=== PATIENT | male | born 1985 | race Caucasian/White ===

== ENCOUNTER 2022-05-06 17:29 | Inpatient (IN) | payer SELFPAY ==
[2022-05-06] MEDS ORDERED: Sodium Chloride 0.9% 10 ML Syringe FLUSH PRN (17:53)
[2022-05-06] MEDS ORDERED: Sodium Chloride 0.9% 2.5 ML Syringe FLUSH PRN (17:53)
[2022-05-06] MEDS ORDERED: Sodium Chloride 0.9% 1,000 ML IV ONE ×3 (17:53→20:24)
[2022-05-06 19:14] LABS: CARBON DIOXIDE,CO2 8.8 mmol/L (21.0-32.0); POTASSIUM,K 5.5 mmol/L (3.5-5.1)
[2022-05-06 19:39] LABS: CORONAVIRUS COVID-19 NAA NEGATIVE (NEGATIVE); INFLUENZA A NAA NEGATIVE (NEGATIVE); INFLUENZA B NAA NEGATIVE (NEGATIVE)
[2022-05-06] MEDS: Insulin Regular in 0.9 % NACL 100 ML IV SCH (19:49)
[2022-05-06] MEDS ORDERED: Sodium Chloride 0.9% 1,000 ML IV SCH (21:45)
[2022-05-06 23:21] LABS: BLOOD UREA NITROGEN,BUN 14 mg/dL (7.0-18.0); CARBON DIOXIDE,CO2 10.1 mmol/L (21.0-32.0); CHLORIDE,CL 102 mmol/L (98-107); GLUCOSE RANDOM 249 mg/dL (74-106); POTASSIUM,K 4.7 mmol/L (3.5-5.1); SODIUM,NA 137 mmol/L (136-148)
[2022-05-06 23:24] LABS: ESTIMATED GFR 66 mL/min (>60)
[2022-05-07] MEDS: Enoxaparin 40 MG/0.4 ML Syringe SUBCUT SCH ×2 (01:35→23:07)
[2022-05-07] MEDS: Dextrose 5%-0.9% NaCl 1,000 ML IV SCH ×3 (04:20→16:43)
[2022-05-07 06:01] LABS: BLOOD UREA NITROGEN,BUN 12 mg/dL (7.0-18.0); CARBON DIOXIDE,CO2 15.7 mmol/L (21.0-32.0); CHLORIDE,CL 106 mmol/L (98-107); GLUCOSE RANDOM 199 mg/dL (74-106); POTASSIUM,K 3.9 mmol/L (3.5-5.1); SODIUM,NA 137 mmol/L (136-148)
[2022-05-07 06:03] LABS: ESTIMATED GFR 72 mL/min (>60)
[2022-05-07 10:42] LABS: BLOOD UREA NITROGEN,BUN 13 mg/dL (7.0-18.0); CARBON DIOXIDE,CO2 18.7 mmol/L (21.0-32.0); CHLORIDE,CL 106 mmol/L (98-107); ESTIMATED GFR 72 mL/min (>60); GLUCOSE RANDOM 222 mg/dL (74-106); POTASSIUM,K 3.9 mmol/L (3.5-5.1); SODIUM,NA 137 mmol/L (136-148)
[2022-05-07 13:18] LABS: HEMOGLOBIN A1C 12.8 %
[2022-05-07 14:49] LABS: BLOOD UREA NITROGEN,BUN 12 mg/dL (7.0-18.0); CARBON DIOXIDE,CO2 19.6 mmol/L (21.0-32.0); CHLORIDE,CL 108 mmol/L (98-107); GLUCOSE RANDOM 229 mg/dL (74-106); POTASSIUM,K 4.2 mmol/L (3.5-5.1); SODIUM,NA 140 mmol/L (136-148)
[2022-05-07 14:51] LABS: ESTIMATED GFR 79 mL/min (>60)
[2022-05-07 18:44] LABS: BLOOD UREA NITROGEN,BUN 12 mg/dL (7.0-18.0); CARBON DIOXIDE,CO2 18.5 mmol/L (21.0-32.0); CHLORIDE,CL 108 mmol/L (98-107); ESTIMATED GFR 88 mL/min (>60); GLUCOSE RANDOM 222 mg/dL (74-106); POTASSIUM,K 3.5 mmol/L (3.5-5.1); SODIUM,NA 139 mmol/L (136-148)
[2022-05-07] MEDS ORDERED: Dextrose 5%-0.45% NaCl 1,000 ML IV SCH (20:45)
[2022-05-07] MEDS ORDERED: Insulin Glargine,Hum.Rec.Anlog 100 UNIT/ML 3 ML Pen SUBCUT SCH (21:00)
[2022-05-07] MEDS: Insulin Regular in 0.9 % NACL 100 ML IV SCH (21:39)
[2022-05-07 22:28] LABS: BLOOD UREA NITROGEN,BUN 10 mg/dL (7.0-18.0); CARBON DIOXIDE,CO2 21.3 mmol/L (21.0-32.0); CHLORIDE,CL 108 mmol/L (98-107); GLUCOSE RANDOM 198 mg/dL (74-106); POTASSIUM,K 3.2 mmol/L (3.5-5.1); SODIUM,NA 139 mmol/L (136-148)
[2022-05-07 22:31] LABS: ESTIMATED GFR 88 mL/min (>60)
[2022-05-07] MEDS ORDERED: 50% Dextrose in Water 50 ML Syringe IVPUSH PRN (22:49)
[2022-05-07] MEDS ORDERED: Glucagon,Human Recombinant 1 MG Vial IM PRN (22:49)
[2022-05-07] MEDS ORDERED: Potassium Chloride 10% 20 MEQ/15 ML Soln 30 ML UD Cup PO ONE (22:55)
[2022-05-08 05:59] LABS: BLOOD UREA NITROGEN,BUN 12 mg/dL (7.0-18.0); CARBON DIOXIDE,CO2 19.4 mmol/L (21.0-32.0); CHLORIDE,CL 106 mmol/L (98-107); GLUCOSE RANDOM 222 mg/dL (74-106); POTASSIUM,K 3.4 mmol/L (3.5-5.1); SODIUM,NA 138 mmol/L (136-148)
[2022-05-08 06:07] LABS: ESTIMATED GFR 99 mL/min (>60)
[2022-05-08] MEDS ORDERED: Potassium Chloride 20 MEQ Tab.ER PO ONE ×2 (06:21→07:53)
[2022-05-08] MEDS: Insulin Aspart 100 Units/ML 3 ML Pen SUBCUT SCH ×2 (07:46→11:53)
[2022-05-08 11:35] LABS: BLOOD UREA NITROGEN,BUN 12 mg/dL (7.0-18.0); CARBON DIOXIDE,CO2 21.4 mmol/L (21.0-32.0); CHLORIDE,CL 104 mmol/L (98-107); GLUCOSE RANDOM 312 mg/dL (74-106); SODIUM,NA 136 mmol/L (136-148)
[2022-05-08 11:41] LABS: ESTIMATED GFR 112 mL/min (>60)
== END 2022-05-08 13:25 | disposition home or self-care (01) | DRG 639 ==
LOC: MW.ED 17:29 → MW.ICU 20:32
PROVIDERS: ADMIT Internal Medicine; ATTEND Internal Medicine
DX: E11.10 Type 2 diabetes mellitus with ketoacidosis without coma (principal); F17.200 Nicotine dependence, unspecified, uncomplicated; Z20.822 Contact with and (suspected) exposure to COVID-19; Z79.4 Long term (current) use of insulin
CPT/HCPCS: 0240U; 36415; 71045; 71045-26; 80048; 80053; 82009; 82803; 82947; 83036; 83735; 84100; 85025; 85027; 96360; 96361; 99291; A9270-GY; J1650; J1815; J1815-GY; J3490; J7030; J7042